=== PATIENT | female | born 1960 | race African-American/Black ===

== ENCOUNTER 2016-09-15 17:50 | Inpatient (IN) | payer MEDICAID ==
[~2016-09-15] VITALS: Ht 170.2 cm; Wt 125.5 kg
[2016-09-15] MEDS ORDERED: FUROSEMIDE 40 MG/4 ML IVP ONE (18:30)
[2016-09-15] MEDS ORDERED: SODIUM CHLORIDE FLUSH 10ML SYR IVF ONE (18:30)
[2016-09-15] MEDS ORDERED: FUROSEMIDE 40 MG/4 ML ONE (19:33)
[2016-09-15 19:38] LABS: HEMATOCRIT 24.1 % (34.6-47.8); HEMOGLOBIN 7.9 g/dL (11.7-16.4); WHITE BLOOD COUNT 7.6 x10^3/uL (3.4-10)
[2016-09-15 19:41] LABS: BLOOD UREA NITROGEN 10 mg/dL (7-18)
[2016-09-15 19:48] LABS: IS PT STATUS REG ER OR PRE ER? YES
[2016-09-15] MEDS ORDERED: RIVAROXABAN 15 MG TABLET PO ONE (20:30)
[2016-09-15] MEDS ORDERED: OXYB10TA PO (20:37)
[2016-09-15] MEDS ORDERED: DOXY25TA PO (20:37)
[2016-09-15] MEDS ORDERED: POTA20PA8 PO (20:37)
[2016-09-15] MEDS ORDERED: FURO-93 PO (20:37)
[2016-09-15] MEDS ORDERED: LISI-167 PO (20:37)
[2016-09-15] MEDS ORDERED: ACETAMINOPHEN 325 MG TABLET PO PRN (22:00)
[2016-09-15] MEDS ORDERED: ENALAPRILAT 1.25 MG/ML, 2ML IVPush PRN (22:00)
[2016-09-15] MEDS ORDERED: POLYETHYLENE GLYCOL 17 GM PACKET PO PRN (22:00)
[2016-09-15] MEDS ORDERED: ONDANSETRON ODT 4 MG PO PRN (22:00)
[2016-09-15 22:18] VITALS: BP 157/88
[2016-09-16] MEDS ORDERED: ERGOCALCIFEROL 50,000 UNIT CAPSULE PO SCH
[2016-09-16 01:38] VITALS: BP 141/93
[2016-09-16 01:51] LABS: HEMATOCRIT 23.8 % (34.6-47.8); HEMOGLOBIN 7.9 g/dL (11.7-16.4); WHITE BLOOD COUNT 6.2 x10^3/uL (3.4-10)
[2016-09-16 01:55] LABS: IS PT STATUS REG ER OR PRE ER? NO
[2016-09-16 02:00] LABS: BLOOD UREA NITROGEN 10 mg/dL (7-18)
[2016-09-16 06:40] VITALS: BP 159/98
[2016-09-16 07:44] LABS: IS PT STATUS REG ER OR PRE ER? NO
[2016-09-16] MEDS ORDERED: LISINOPRIL 10 MG TABLET PO SCH (09:00)
[2016-09-16] MEDS: OXYBUTYNIN CHLORIDE 5 MG TABLET PO SCH ×3 (09:25→20:53)
[2016-09-16] MEDS: FUROSEMIDE 20 MG TABLET PO SCH (09:25)
[2016-09-16] MEDS: POTASSIUM CHLORIDE 20 MEQ PACKET PO SCH (09:26)
[2016-09-16] MEDS: RIVAROXABAN 15 MG TABLET PO SCH ×2 (09:26→20:53)
[2016-09-16] MEDS: AMLODIPINE 2.5 MG TABLET PO SCH (12:47)
[2016-09-16 12:57] VITALS: BP 160/89
[2016-09-16 19:42] VITALS: BP 149/91
[2016-09-16] MEDS: MIRTAZAPINE 15 MG TABLET PO SCH (20:53)
[2016-09-16] MEDS ORDERED: MIRTAZAPINE 30 MG TAB.RAPDIS PO ONE (21:00)
[2016-09-17 01:50] VITALS: BP 137/90
[2016-09-17 07:12] VITALS: BP 158/93
[2016-09-17 07:12] LABS: HEMATOCRIT 28.8 % (34.6-47.8); HEMOGLOBIN 9.5 g/dL (11.7-16.4)
[2016-09-17 07:19] LABS: ASPARTATE AMINO TRANSFERASE 7 U/L (15-37); BLOOD UREA NITROGEN 10 mg/dL (7-18)
[2016-09-17 07:44] LABS: FERRITIN 39.5 ng/mL (8-252); TOTAL IRON BINDING CAPACITY 242 mcg/dL (250-450)
[2016-09-17] MEDS: AMLODIPINE 2.5 MG TABLET PO SCH (09:59)
[2016-09-17] MEDS: OXYBUTYNIN CHLORIDE 5 MG TABLET PO SCH ×3 (09:59→20:28)
[2016-09-17] MEDS: POTASSIUM CHLORIDE 20 MEQ PACKET PO SCH (09:59)
[2016-09-17] MEDS: RIVAROXABAN 15 MG TABLET PO SCH ×2 (09:59→20:28)
[2016-09-17] MEDS: FUROSEMIDE 20 MG TABLET PO SCH (09:59)
[2016-09-17] MEDS: LISINOPRIL 20 MG TABLET PO SCH (10:00)
[2016-09-17 14:48] VITALS: BP 155/92
[2016-09-17 16:45] VITALS: BP 155/95
[2016-09-17 19:35] VITALS: BP 147/84
[2016-09-17] MEDS: MIRTAZAPINE 15 MG TABLET PO SCH (20:28)
[2016-09-18 01:33] VITALS: BP 136/83
[2016-09-18 08:17] VITALS: BP 154/86
[2016-09-18] MEDS: OXYBUTYNIN CHLORIDE 5 MG TABLET PO SCH (09:07)
[2016-09-18] MEDS: POTASSIUM CHLORIDE 20 MEQ PACKET PO SCH (09:07)
[2016-09-18] MEDS: FUROSEMIDE 20 MG TABLET PO SCH (09:07)
[2016-09-18] MEDS: RIVAROXABAN 15 MG TABLET PO SCH (09:07)
[2016-09-18] MEDS: AMLODIPINE 2.5 MG TABLET PO SCH (09:07)
[2016-09-18] MEDS: LISINOPRIL 20 MG TABLET PO SCH (09:08)
[2016-09-18] MEDS ORDERED: RIVA15TA PO (12:59)
== END 2016-09-18 15:30 | disposition home or self-care (01) | DRG 175 ==
LOC: ED 19:44 → EDIP 21:28 → 4EST 21:55 → DCLOUNGE 09-18 14:25
PROVIDERS: ADMIT Internal Medicine; ATTEND Internal Medicine
DX: I26.99 Other pulmonary embolism without acute cor pulmonale (principal); J96.01 Acute respiratory failure with hypoxia; E43 Unspecified severe protein-calorie malnutrition; Z68.41 Body mass index [BMI] 40.0-44.9, adult; E66.01 Morbid (severe) obesity due to excess calories; D63.8 Anemia in other chronic diseases classified elsewhere; I25.10 Atherosclerotic heart disease of native coronary artery without angina pectoris; N18.9 Chronic kidney disease, unspecified; I13.10 Hypertensive heart and chronic kidney disease without heart failure, with stage 1 through stage 4 chronic kidney disease, or unspecified chronic kidney disease; Z82.3 Family history of stroke; Z83.3 Family history of diabetes mellitus; Z87.01 Personal history of pneumonia (recurrent); Z98.51 Tubal ligation status; Z88.1 Allergy status to other antibiotic agents; Z86.718 Personal history of other venous thrombosis and embolism
CPT/HCPCS: 36415; 71010; 80048; 80053; 82040; 82607; 82728; 82746; 83540; 83550; 83880; 84484; 85025; 85045; 93005; 93970; 96374; J1940; Q0162

== ENCOUNTER 2017-05-22 12:04 | Emergency (ER) | payer MEDICAID ==
[~2017-05-22] VITALS: Ht 175.3 cm; Wt 124.0 kg
[~2017-05-22 12:04] MED LIST: DOXY25TA45 PO; FURO-93 PO; LISI-167 PO; OXYB10TA PO; POTA20PA25 PO; RIVA15TA PO
[2017-05-22] MEDS ORDERED: HYDR25TA6 PO (12:39)
[2017-05-22] MEDS ORDERED: MIRT30TA4 PO (12:39)
[2017-05-22] MEDS ORDERED: METO50TA82 PO (12:39)
[2017-05-22] MEDS ORDERED: FURO20TA3 PO (12:39)
[2017-05-22] MEDS ORDERED: POTA20TA89 PO (12:39)
[2017-05-22] MEDS ORDERED: LISI40TA PO (12:39)
[2017-05-22] MEDS ORDERED: OXYB10TA PO (12:39)
[2017-05-22] MEDS ORDERED: ERGO500017 PO (12:39)
[2017-05-22] MEDS ORDERED: MAALOX/HYOSCYAMINE/LIDOCAINE 45 ML BTL ONE (13:13)
[2017-05-22] MEDS ORDERED: MAALOX/HYOSCYAMINE/LIDOCAINE 45 ML BTL PO ONE (13:30)
[2017-05-22 13:37] LABS: ALANINE AMINOTRANSFERASE 20 U/L (12-78); ALBUMIN 3.3 g/dL (3.4-5.0); ANION GAP 8 mmol/L (5-15); CALCIUM 9.4 mg/dL (8.5-10.1); CHLORIDE 102 mmol/L (98-107)
[2017-05-22 13:40] LABS: BASOPHILS # (AUTO) 0.02 x10^3/uL (0-0.1); BASOPHILS % (AUTO) 0 % (0-1); EOSINOPHILS # (AUTO) 0.04 x10^3/uL (0-0.4); EOSINOPHILS % (AUTO) 1 % (1-7); LYMPHOCYTES # (AUTO) 1.44 x10^3/uL (1-3.4); LYMPHOCYTES % (AUTO) 23 % (22-44); MD NO; MEAN CORPUSCULAR HEMOGLOBIN 28.2 pg (27.0-34.8); MEAN CORPUSCULAR HGB CONC 32.8 g/dL (32.4-35.8); MEAN PLATELET VOLUME 7.9 fL (7.4-10.4); MONOCYTES # (AUTO) 0.56 x10^3/uL (0.2-0.8); MONOCYTES % (AUTO) 9 % (2-9); NEUTROPHILS % (AUTO) 67 % (42-75); PLATELET COUNT 452 x10^3/uL (130-400); RED BLOOD COUNT 3.74 x10^6/uL (3.82-5.3); RED CELL DISTRIBUTION WIDTH 17.8 % (9.6-15.2)
[2017-05-22 13:42] LABS: ALKALINE PHOSPHATASE 80 U/L (45-117); BILIRUBIN,TOTAL 0.2 mg/dL (0.2-1.0); TOTAL PROTEIN 8.3 g/dL (6.4-8.2); TROPONIN I < 0.015 ng/mL (0.000-0.045)
[2017-05-22 14:51] VITALS: BP 157/63
== END 2017-05-22 14:53 | disposition home or self-care (01) ==
LOC: ED 14:13
DX: R07.89 Other chest pain (principal); K21.9 Gastro-esophageal reflux disease without esophagitis; I10 Essential (primary) hypertension; Z86.718 Personal history of other venous thrombosis and embolism
CPT/HCPCS: 36415; 71045; 80053; 83605; 83690; 83880; 84484; 85025; 93005; 99285

== ENCOUNTER 2017-11-12 19:27 | Emergency (ER) | payer MEDICAID ==
[~2017-11-12] VITALS: Ht 175.3 cm; Wt 122.0 kg
[~2017-11-12 19:27] MED LIST changes: +ERGO500017 PO; +FURO20TA3 PO; +HYDR25TA6 PO; +LISI40TA PO; +METO50TA82 PO; +MIRT30TA4 PO; +POTA20TA89 PO
[2017-11-12 22:04] VITALS: BP 125/74
== END 2017-11-12 22:06 | disposition home or self-care (01) ==
LOC: ED 21:10
DX: S90.31XA Contusion of right foot, initial encounter (principal); S16.1XXA Strain of muscle, fascia and tendon at neck level, initial encounter; G89.11 Acute pain due to trauma; M25.561 Pain in right knee; I10 Essential (primary) hypertension; Z86.718 Personal history of other venous thrombosis and embolism; K21.9 Gastro-esophageal reflux disease without esophagitis; V49.59XA Passenger injured in collision with other motor vehicles in traffic accident, initial encounter; Y93.89 Activity, other specified; Y99.8 Other external cause status; Y92.410 Unspecified street and highway as the place of occurrence of the external cause
CPT/HCPCS: 70450; 72125; 99284

== ENCOUNTER 2019-02-19 12:35 | Emergency (ER) | payer MEDICAID, OTHER ==
[~2019-02-19] VITALS: Ht 175.3 cm; Wt 123.8 kg
[~2019-02-19 12:35] MED LIST changes: -OXYB10TA PO; +OXYB10TA2 PO
[2019-02-19] MEDS ORDERED: POTASSIUM (13:19)
[2019-02-19] MEDS ORDERED: VITAMIN C (13:19)
[2019-02-19] MEDS ORDERED: OXYBUTYNIN (13:19)
[2019-02-19] MEDS ORDERED: METOPROLOL (13:19)
[2019-02-19] MEDS ORDERED: LASIX (13:19)
[2019-02-19] MEDS ORDERED: LISINOPRIL (13:19)
--- NOTE | 2019-02-19 13:20 | NUR ---
PT CAME IN CO OF CHEST PAIN LOCATED HIGH IN HER CHEST. EKG COMPLETED. BLOOD DRAWN. BP 152/81. PT HOOKED UP TO LEGAL ADMINISTRATIVE SECRETARY. CALL LIGHT WITHIN REACH. HX CHF, HTN
[2019-02-19 13:30] LABS: BASOPHILS # (AUTO) 0.01 x10^3/uL (0-0.1); BASOPHILS % (AUTO) 0 % (0-1); EOSINOPHILS # (AUTO) 0.02 x10^3/uL (0-0.4); EOSINOPHILS % (AUTO) 1 % (1-7); LYMPHOCYTES # (AUTO) 0.61 x10^3/uL (1-3.4); LYMPHOCYTES % (AUTO) 13 % (22-44); MD NO; MEAN CORPUSCULAR HEMOGLOBIN 31.6 pg (27.0-34.8); MEAN CORPUSCULAR HGB CONC 33.5 g/dL (32.4-35.8); MEAN CORPUSCULAR VOLUME 94.3 fL (80-100); MEAN PLATELET VOLUME 7.3 fL (7.4-10.4); MONOCYTES # (AUTO) 0.85 x10^3/uL (0.2-0.8); MONOCYTES % (AUTO) 18 % (2-9); NEUTROPHILS # (AUTO) 3.25 x10^3/uL (1.8-6.8); NEUTROPHILS % (AUTO) 69 % (42-75); PLATELET COUNT 353 x10^3/uL (130-400); RED BLOOD COUNT 3.88 x10^6/uL (3.82-5.3); RED CELL DISTRIBUTION WIDTH 14.4 % (9.6-15.2)
[2019-02-19] MEDS ORDERED: ACETAMINOPHEN 500 MG TABLET PO ONE (13:30)
[2019-02-19] MEDS ORDERED: MORPHINE SULFATE 4 MG/ML, 1ML IVPush PRN (13:30)
[2019-02-19] MEDS ORDERED: MAALOX/HYOSCYAMINE/LIDOCAINE 45 ML BTL ONE (13:40)
[2019-02-19] MEDS ORDERED: ACETAMINOPHEN 500 MG TABLET ONE (13:40)
[2019-02-19 13:41] LABS: ANION GAP 7 mmol/L (5-15); CHLORIDE 106 mmol/L (98-107); CREATININE 1.02 mg/dL (0.55-1.02)
[2019-02-19 13:42] LABS: ALANINE AMINOTRANSFERASE 23 U/L (12-78); ALBUMIN 3.6 g/dL (3.4-5.0)
[2019-02-19 13:46] LABS: ALKALINE PHOSPHATASE 86 U/L (45-117); BILIRUBIN,TOTAL 0.3 mg/dL (0.2-1.0); TOTAL PROTEIN 8.4 g/dL (6.4-8.2); TROPONIN I < 0.015 ng/mL (0.000-0.045)
[2019-02-19] MEDS ORDERED: MAALOX/HYOSCYAMINE/LIDOCAINE 45 ML BTL PO ONE (14:00)
[2019-02-19 14:36] VITALS: BP 172/81
--- NOTE | 2019-02-19 14:37 | NUR ---
PT AMBUALTED TO RESTROOM. REPORTS PAIN IMRPOVEMENT
== END 2019-02-19 16:02 | disposition home or self-care (01) ==
LOC: ED 13:25
DX: K21.0 Gastro-esophageal reflux disease with esophagitis (principal); I10 Essential (primary) hypertension
CPT/HCPCS: 36415; 71045; 80053; 83880; 84484; 85025; 93005; 99284

== ENCOUNTER 2019-02-23 09:56 | Observation (INO) | payer MEDICAID ==
[~2019-02-23] VITALS: Ht 175.3 cm; Wt 113.7 kg
[~2019-02-23 09:56] MED LIST changes: +LASIX; +LISINOPRIL; +METOPROLOL; +OXYBUTYNIN; +POTASSIUM; +VITAMIN C
--- NOTE | 2019-02-23 10:23 | NUR ---
PT REFUSED EKG IN TRIAGE
--- NOTE | 2019-02-23 10:40 | NUR ---
PT IS A POOR HISTORIAN, ANSWERS ARE DIFFICULT TO GATHER FOR CLINICAL SCREEN. PT STATES THAT HER [facility] IS NO LONGER ACT[facility], AND THAT SHE WAS GIVEN A PRESCRIPTION FOR HER MEDICATIONS UPON HER LAST VISIT THAT WERE MEANT TO GET HER THROUGH TO HER FIRST PCP APPOINTMENT. PT NEW PT APPOINTMENT ISN'T UNTIL JULY, AND SHE IS NOW OUT OF ELIQUIS, FINISHED HER SCRIPT AT THE END OF JANUARY. PT NOW C/O FATIGUE, DRY MOUTH, BILATERAL LOWER LEG PAIN, AND "KIDNEYS" ALTHOUGH SHE IS UNABLE TO MAKE CLEAR WHAT SHE FEELS IS WRONG WITH HER KIDNEYS AND DENIES ACTIVE PAIN. PT REFUSED BLANKETS, ATTEMPTED TO REFUSE MONITORING EQUIPMENT BUT AFTER MORE PT EDUCATION BECAME AGREEABLE. DENIES ANY FURTHER NEEDS AT THIS TIME. MEDICAL STUDENT AT BEDSIDE FOR FURTHER ASSESSMENT. CALL LIGHT IN REACH.
[2019-02-23 11:05] LABS: CULTURE INDICATED? YES; MICROSCOPIC INDICATED
[2019-02-23] MEDS ORDERED: ENALAPRILAT 1.25 MG/ML, 2ML IV ONE (11:30)
[2019-02-23] MEDS ORDERED: ENALAPRILAT 1.25 MG/ML, 1ML ONE (11:38)
[2019-02-23 12:19] LABS: BASOPHILS # (AUTO) 0.02 x10^3/uL (0-0.1); BASOPHILS % (AUTO) 0 % (0-1); EOSINOPHILS # (AUTO) 0.08 x10^3/uL (0-0.4); EOSINOPHILS % (AUTO) 2 % (1-7); LYMPHOCYTES # (AUTO) 1.23 x10^3/uL (1-3.4); LYMPHOCYTES % (AUTO) 23 % (22-44); MD NO; MEAN CORPUSCULAR HEMOGLOBIN 31.4 pg (27.0-34.8); MEAN CORPUSCULAR HGB CONC 33.3 g/dL (32.4-35.8); MEAN CORPUSCULAR VOLUME 94.3 fL (80-100); MEAN PLATELET VOLUME 7.6 fL (7.4-10.4); MONOCYTES # (AUTO) 0.43 x10^3/uL (0.2-0.8); MONOCYTES % (AUTO) 8 % (2-9); NEUTROPHILS # (AUTO) 3.67 x10^3/uL (1.8-6.8); NEUTROPHILS % (AUTO) 68 % (42-75); PLATELET COUNT 426 x10^3/uL (130-400); RED BLOOD COUNT 3.95 x10^6/uL (3.82-5.3)
[2019-02-23 12:24] LABS: ALBUMIN 3.8 g/dL (3.4-5.0); ANION GAP 7 mmol/L (5-15); CALCIUM 9.1 mg/dL (8.5-10.1); CHLORIDE 109 mmol/L (98-107)
[2019-02-23 12:31] LABS: ALANINE AMINOTRANSFERASE 26 U/L (12-78); ALKALINE PHOSPHATASE 86 U/L (45-117); BILIRUBIN,TOTAL 0.3 mg/dL (0.2-1.0); CREATININE 0.92 mg/dL (0.55-1.02); TOTAL PROTEIN 8.9 g/dL (6.4-8.2); TROPONIN I < 0.015 ng/mL (0.000-0.045)
--- NOTE | 2019-02-23 12:34 | NUR ---
STRAIGHT CATH SUPPLIES AT BEDSIDE. PT IN BED, FAMILY AT BEDSIDE. CALL LIGHT IN REACH.
--- NOTE | 2019-02-23 13:09 | NUR ---
PT IN BED, EATING PORT OF SUBS WITH FAMILY. REFUSING STRAIGHT CATH AT THIS TIME. WANTS TO WAIT UNTIL SHE IS DONE EATING. CALL LIGHT IN REACH.
[2019-02-23 13:57] LABS: MICROSCOPIC NOT IND
[2019-02-23 14:02] LABS: CULTURE INDICATED? NO
[2019-02-23] MEDS ORDERED: OMNIPAQUE 350 MG/ML, 100ML BOTTLE ONE (15:20)
--- NOTE | 2019-02-23 16:13 | NUR ---
REPORT TO [facility], RECEIVING RN. PT UPDATED ON PLAN OF CARE. DENIES ANY NEEDS OR CONCERNS AT THIS TIME. CALL LIGHT IN REACH, AWAITING TRANSPORT.
[2019-02-23] MEDS ORDERED: BISACODYL 10 MG SUPP PR PRN (16:30)
[2019-02-23] MEDS ORDERED: DOCUSATE 100 MG CAPSULE PO PRN (16:30)
[2019-02-23] MEDS ORDERED: ACETAMINOPHEN 325 MG TABLET PO PRN (16:30)
[2019-02-23 17:31] LABS: TROPONIN I < 0.015 ng/mL (0.000-0.045)
[2019-02-23 17:54] VITALS: BP 163/95
[2019-02-23] MEDS: RIVAROXABAN 15 MG TABLET PO SCH (18:22)
[2019-02-23] MEDS: ASCORBIC ACID 500 MG TABLET PO SCH (18:22)
[2019-02-23] MEDS: FERROUS SULFATE 325 MG TABLET PO SCH (18:22)
[2019-02-23 18:47] VITALS: BP 173/88
[2019-02-23 20:56] VITALS: BP 146/72
[2019-02-23] MEDS ORDERED: RIVAROXABAN 15 MG TABLET PO SCH (21:00)
[2019-02-23] MEDS: METOPROLOL TARTRATE 50 MG TABLET PO SCH (21:00)
[2019-02-23 22:34] LABS: TROPONIN I < 0.015 ng/mL (0.000-0.045)
[2019-02-24 00:28] VITALS: BP 156/79
[2019-02-24 05:48] LABS: ALBUMIN 3.4 g/dL (3.4-5.0); ANION GAP 8 mmol/L (5-15); CHLORIDE 109 mmol/L (98-107)
[2019-02-24 05:53] LABS: ALANINE AMINOTRANSFERASE 23 U/L (12-78); ALKALINE PHOSPHATASE 77 U/L (45-117); BILIRUBIN,TOTAL 0.2 mg/dL (0.2-1.0); CREATININE 0.91 mg/dL (0.55-1.02); TOTAL PROTEIN 7.9 g/dL (6.4-8.2)
[2019-02-24 05:56] LABS: BASOPHILS # (AUTO) 0.02 x10^3/uL (0-0.1); BASOPHILS % (AUTO) 0 % (0-1); EOSINOPHILS # (AUTO) 0.07 x10^3/uL (0-0.4); EOSINOPHILS % (AUTO) 2 % (1-7); LYMPHOCYTES % (AUTO) 34 % (22-44); MD NO; MEAN CORPUSCULAR HEMOGLOBIN 31.7 pg (27.0-34.8); MEAN CORPUSCULAR HGB CONC 33.5 g/dL (32.4-35.8); MEAN CORPUSCULAR VOLUME 94.6 fL (80-100); MEAN PLATELET VOLUME 7.7 fL (7.4-10.4); MONOCYTES # (AUTO) 0.45 x10^3/uL (0.2-0.8); MONOCYTES % (AUTO) 11 % (2-9); NEUTROPHILS # (AUTO) 2.13 x10^3/uL (1.8-6.8); NEUTROPHILS % (AUTO) 52 % (42-75); PLATELET COUNT 356 x10^3/uL (130-400); RED BLOOD COUNT 3.56 x10^6/uL (3.82-5.3)
[2019-02-24] MEDS ORDERED: OMEPRAZOLE 20 MG CAPSULE.DR PO SCH (06:00)
[2019-02-24 06:55] VITALS: BP 168/92
[2019-02-24] MEDS: RIVAROXABAN 15 MG TABLET PO SCH ×2 (08:11→17:14)
[2019-02-24] MEDS: FERROUS SULFATE 325 MG TABLET PO SCH ×2 (08:12→17:15)
[2019-02-24] MEDS: ASCORBIC ACID 500 MG TABLET PO SCH ×2 (08:12→17:15)
[2019-02-24] MEDS: METOPROLOL TARTRATE 50 MG TABLET PO SCH (08:13)
[2019-02-24] MEDS ORDERED: POTASSIUM CHLORIDE 10 MEQ TABLET.ER PO SCH (09:00)
[2019-02-24] MEDS ORDERED: FUROSEMIDE 20 MG TABLET PO SCH (09:00)
[2019-02-24] MEDS ORDERED: OXYBUTYNIN CHLORIDE 5 MG TABLET PO SCH (09:00)
[2019-02-24] MEDS ORDERED: LISINOPRIL 40 MG TABLET PO SCH (09:00)
[2019-02-24] MEDS ORDERED: REGADENOSON 0.4 MG/5 ML SYRINGE ONE (09:13)
[2019-02-24 14:13] VITALS: BP 151/75
[2019-02-24] MEDS ORDERED: OMEP-110 PO (16:43)
[2019-02-24] MEDS ORDERED: RIVA20TA PO (16:43)
[2019-02-24] MEDS ORDERED: ASPI-515 PO (16:43)
[2019-02-24] MEDS ORDERED: SIMV40TA PO (16:43)
== END 2019-02-24 17:42 | disposition home or self-care (01) ==
LOC: ED 11:00 → EDIP 15:47 → INTOOBSV 15:47 → 5SO 16:35
PROVIDERS: ADMIT Internal Medicine; ATTEND Internal Medicine
DX: R06.02 Shortness of breath (principal); R07.9 Chest pain, unspecified; J06.9 Acute upper respiratory infection, unspecified; I25.10 Atherosclerotic heart disease of native coronary artery without angina pectoris; E66.9 Obesity, unspecified; I13.0 Hypertensive heart and chronic kidney disease with heart failure and stage 1 through stage 4 chronic kidney disease, or unspecified chronic kidney disease; N18.2 Chronic kidney disease, stage 2 (mild); I16.0 Hypertensive urgency; I50.9 Heart failure, unspecified; D63.8 Anemia in other chronic diseases classified elsewhere; G47.00 Insomnia, unspecified; Z79.899 Other long term (current) drug therapy; Z79.01 Long term (current) use of anticoagulants
CPT/HCPCS: 36415; 71046; 71275; 76700; 78452; 80053; 81001; 81003; 83690; 83880; 84145; 84443; 84484; 85025; 85379; 87077; 87086; 87186; 93005; 93017; 93306; 96374; 99284; A9502; G0378; J2785; Q9967